=== PATIENT | female | born 1955 | race Caucasian/White ===

== ENCOUNTER 2023-05-18 23:19 | Inpatient (IN) | payer MEDICARE, OTHER ==
[~2023-05-18] VITALS: Ht 160 cm; Wt 117.9 kg
[~2023-05-18 23:19] MED LIST: ACET325T53 PO; ASPI81TA31 PO; ATOR40TA PO; CYCL-289 PO; GABA-534 PO; IPRA0.2S6 NEB; LEVE1000 PO; LEVO150T8 PO; METF-440 PO; OXYC-133 PO; PANT40TA2 PO; POLY17PO4 PO; POTA10TA15 PO; TOPI100T PO; TOPI200T PO
[2023-05-18 23:58] LABS: ETHANOL < 3 MG/DL (0-10)
[2023-05-19] MEDS ORDERED: DOCU-141 PO
[2023-05-19] MEDS ORDERED: LEVE500T20 PO
[2023-05-19] MEDS ORDERED: PANT40TA2 PO
[2023-05-19] MEDS ORDERED: POLY17PO4 PO
[2023-05-19] MEDS ORDERED: DULO60CA45 PO
[2023-05-19] MEDS ORDERED: NA P133E RC
[2023-05-19] MEDS ORDERED: ATOR10TA PO
[2023-05-19] MEDS ORDERED: TEMA15CA5 PO
[2023-05-19] MEDS ORDERED: CLON0.1T PO
[2023-05-19] MEDS ORDERED: CRAN450T9 PO
[2023-05-19] MEDS ORDERED: BISA10SU61 RC
[2023-05-19] MEDS ORDERED: MAG30ORA PO
[2023-05-19] MEDS ORDERED: LORA0.5T48 PO
[2023-05-19] MEDS ORDERED: QUET200T PO
[2023-05-19] MEDS ORDERED: DIVA125C2 PO
[2023-05-19] MEDS ORDERED: HYDR-3980 PO
[2023-05-19] MEDS ORDERED: GABA-532 PO
[2023-05-19] MEDS ORDERED: MULT-1119 PO
[2023-05-19] MEDS ORDERED: CYCL5TAB PO
[2023-05-19] MEDS ORDERED: MAGN400O6 PO
[2023-05-19 00:01] LABS: BASOPHILS # (AUTO) 0.1 K/UL (0.0-0.2); BASOPHILS % (AUTO) 1.2 % (0.0-2.0); EOSINOPHILS # (AUTO) 0.1 K/uL (0.0-0.7); EOSINOPHILS % (AUTO) 2.8 % (0.0-7.0); HEMATOCRIT 41.3 % (31.2-41.9); HEMOGLOBIN 13.8 g/dL (10.9-14.3); LYMPHOCYTES # (AUTO) 1.7 K/uL (0.8-4.8); LYMPHOCYTES % (AUTO) 34.9 % (20.5-51.5); MEAN CORPUSCULAR HEMOGLOBIN 29.8 uug (24.7-32.8); MEAN CORPUSCULAR HGB CONC 33 g/dL (32.3-35.6); MEAN CORPUSCULAR VOLUME 89.3 fL (75.5-95.3); MONOCYTES # (AUTO) 0.4 K/uL (0.1-1.30); MONOCYTES % (AUTO) 7.4 % (0.0-11.0); NEUTROPHILS # (AUTO) 2.7 K/uL (1.8-8.9); NEUTROPHILS % (AUTO) 53.7 % (38.5-71.5); PLATELET COUNT (AUTO) 117 K/uL (179-408); RED BLOOD CELL COUNT(AUTO) 4.63 MIL/uL (3.63-4.92); RED CELL DISTRIBUTION WIDTH 14.1 % (12.3-17.7)
[2023-05-19 00:08] LABS: THYROID STIMULATING HORMONE 0.319 mIU/mL (0.358-3.740)
[2023-05-19 00:10] LABS: ALANINE AMINOTRANSFERASE 16 U/L (14-59); ALBUMIN 3.4 g/dL (3.4-5.0); ALKALINE PHOSPHATASE 103 U/L (50-136); ASPARTATE AMINOTRANSFERASE 23 U/L (15-37); BILIRUBIN,DIRECT 0.2 mg/dL (0.0-0.2); BILIRUBIN,TOTAL 0.6 mg/dL (0.2-1.0); CALCIUM 9.5 mg/dL (8.5-10.1); CARBON DIOXIDE 27 mmol/L (21-32); CHLORIDE 106 mmol/L (98-107); CREATININE 0.9 mg/dL (0.6-1.3); POTASSIUM 3.4 mmol/L (3.5-5.1); SODIUM SERUM 143 mmol/L (136-145); TOTAL PROTEIN, SERUM 6.7 g/dL (6.4-8.2); UREA NITROGEN, BLOOD 17 mg/dL (7-18)
[2023-05-19 00:14] LABS: ACETAMINOPHEN < 2.0 ug/mL (10-30)
[2023-05-19 00:19] LABS: GLUCOSE 131 mg/dL (74-106)
[2023-05-19] MEDS ORDERED: IV D5W-0.45% NS +20 KCL 1,000 ML IV ONE (00:30)
[2023-05-19] MEDS ORDERED: PANTOPRAZOLE SODIUM 40 MG TABLET.DR PO ONE ×2 (01:29→01:30)
[2023-05-19] MEDS ORDERED: ONDANSETRON ODT 4 MG TAB.RAPDIS ONE (01:29)
[2023-05-19] MEDS ORDERED: levETIRAcetam 250 MG TABLET ONE (01:29)
[2023-05-19] MEDS ORDERED: ONDANSETRON ODT 4 MG TAB.RAPDIS SL ONE (01:30)
[2023-05-19] MEDS ORDERED: LORAZEPAM 0.5 MG TABLET PO ONE (01:30)
[2023-05-19] MEDS ORDERED: LORAZEPAM 1 MG TABLET ONE (01:30)
[2023-05-19] MEDS ORDERED: OXYCODONE/APAP 5-325 MG TABLET ONE (01:30)
[2023-05-19] MEDS ORDERED: OXYCODONE/APAP 5-325 MG TABLET PO ONE (01:30)
[2023-05-19] MEDS ORDERED: levETIRAcetam 250 MG TABLET PO ONE (01:30)
[2023-05-19 02:23] LABS: *AMPHETAMINE, URINE NEGATIVE (NEGATIVE); *BARBITURATE, URINE NEGATIVE (NEGATIVE); *BENZODIAZEPINE, URINE NEGATIVE (NEGATIVE); *CANNABINOID, URINE NEGATIVE (NEGATIVE); *COCCAINE, URINE NEGATIVE (NEGATIVE); *OPIATE, URINE POSITIVE (NEGATIVE); *PHENCYCLIDINE SCREEN,URINE NEGATIVE (NEGATIVE); FENTANYL, URINE NEGATIVE (NEGATIVE)
[2023-05-19 02:55] LABS: *CLARITY,URINE CLEAR (CLEAR); *COLOR,URINE YELLOW (YELLOW)
[2023-05-19 02:56] LABS: *BILIRUBIN,URIN NEGATIVE (NEGATIVE); *BLOOD, URINE NEGATIVE (NEGATIVE); *KETONES,URINE NEGATIVE (NEGATIVE); *PROTEIN,URINE NEGATIVE (NEGATIVE); *UROBILINOGEN,URINE 0.2 E.U./dl (NORMAL); LEUKOCYTE ESTERASE ,URINE NEGATIVE (NEGATIVE); NITRITE, URINE NEGATIVE (NEGATIVE); PH,URINE 6.5 (5.0-8.0); UGLUCOSE NEGATIVE (NEGATIVE)
[2023-05-19] MEDS ORDERED: BLOOD SUGAR DIAGNOSTIC 1 EACH STRIP VI ONE (07:45)
[2023-05-19] MEDS ORDERED: ZOLPIDEM 5 MG TABLET PO PRN (07:45)
[2023-05-19] MEDS ORDERED: MAGNESIUM HYDROXIDE 30 ML LIQUID UDC PO PRN (07:45)
[2023-05-19] MEDS ORDERED: LORAZEPAM 0.5 MG TABLET PO PRN (07:45)
[2023-05-19] MEDS ORDERED: MAG HYDROX/AL HYDROX/SIMETH 30 ML LIQUID UDC PO PRN (07:45)
[2023-05-19 08:15] VITALS: BP 144/82; TEMP 98; O2SAT 98
[2023-05-19] MEDS: DOCUSATE SODIUM 100 MG CAPSULE PO SCH (10:23)
[2023-05-19] MEDS: levETIRAcetam 500 MG TABLET PO SCH ×2 (10:24→17:30)
[2023-05-19] MEDS: MULTIVITAMINS,THERAPEUTIC TABLET PO SCH (10:24)
[2023-05-19 15:18] VITALS: BP 136/49; TEMP 98; O2SAT 98
[2023-05-19] MEDS: DIVALPROEX SPRINKLE 125 MG CAP.SPRINK PO SCH (17:30)
[2023-05-19] MEDS: risperiDONE 1 MG TABLET PO SCH (17:30)
[2023-05-19 20:00] VITALS: BP 126/56; TEMP 98.4; O2SAT 96
[2023-05-19] MEDS: ATORVASTATIN 10 MG TABLET PO SCH (20:48)
[2023-05-20] MEDS: LEVOTHYROXINE SODIUM 125 MCG TABLET PO SCH (06:54)
[2023-05-20 07:30] VITALS: BP 141/72; TEMP 98; O2SAT 96
[2023-05-20 08:24] LABS: ALBUMIN 3.3 g/dL (3.4-5.0); BILIRUBIN,TOTAL 0.5 mg/dL (0.2-1.0); CALCIUM 8.9 mg/dL (8.5-10.1); CREATININE 0.8 mg/dL (0.6-1.3); POTASSIUM 3.6 mmol/L (3.5-5.1); TOTAL PROTEIN, SERUM 6.4 g/dL (6.4-8.2)
[2023-05-20] MEDS: levETIRAcetam 500 MG TABLET PO SCH ×2 (08:36→16:13)
[2023-05-20] MEDS: risperiDONE 1 MG TABLET PO SCH ×4 (08:36→17:00)
[2023-05-20] MEDS: DULOXETINE 60 MG CAPSULE.DR PO SCH (08:36)
[2023-05-20] MEDS: DIVALPROEX SPRINKLE 125 MG CAP.SPRINK PO SCH ×2 (08:36→16:13)
[2023-05-20] MEDS: MULTIVITAMINS,THERAPEUTIC TABLET PO SCH (08:36)
[2023-05-20] MEDS: DOCUSATE SODIUM 100 MG CAPSULE PO SCH (08:36)
[2023-05-20 15:41] VITALS: BP 142/70; TEMP 98; O2SAT 99
[2023-05-20 20:00] VITALS: BP 116/57; TEMP 97.7; O2SAT 97
[2023-05-20] MEDS: ATORVASTATIN 10 MG TABLET PO SCH (20:55)
[2023-05-21] MEDS: LEVOTHYROXINE SODIUM 125 MCG TABLET PO SCH (06:34)
[2023-05-21 08:04] VITALS: BP 155/97; TEMP 98.4; O2SAT 99
[2023-05-21] MEDS: DULOXETINE 60 MG CAPSULE.DR PO SCH (08:36)
[2023-05-21] MEDS: DIVALPROEX SPRINKLE 125 MG CAP.SPRINK PO SCH ×2 (08:37→16:37)
[2023-05-21] MEDS: DOCUSATE SODIUM 100 MG CAPSULE PO SCH (08:37)
[2023-05-21] MEDS: levETIRAcetam 500 MG TABLET PO SCH ×2 (08:37→16:36)
[2023-05-21] MEDS: MULTIVITAMINS,THERAPEUTIC TABLET PO SCH (08:37)
[2023-05-21] MEDS: risperiDONE 1 MG TABLET PO SCH ×3 (08:45→16:37)
[2023-05-21 16:21] VITALS: BP 146/75; TEMP 98.4; O2SAT 99
[2023-05-21 20:00] VITALS: BP 146/72; TEMP 97.8; O2SAT 99
[2023-05-21] MEDS: ATORVASTATIN 10 MG TABLET PO SCH (20:45)
[2023-05-22] MEDS: LEVOTHYROXINE SODIUM 125 MCG TABLET PO SCH (05:52)
[2023-05-22] MEDS: ACETAMINOPHEN 325 MG TABLET PO PRN (05:53)
[2023-05-22 08:06] VITALS: BP 149/84; TEMP 98.2; O2SAT 96
[2023-05-22] MEDS: risperiDONE 1 MG TABLET PO SCH ×3 (09:00→16:50)
[2023-05-22] MEDS: DULOXETINE 60 MG CAPSULE.DR PO SCH (09:26)
[2023-05-22] MEDS: DIVALPROEX SPRINKLE 125 MG CAP.SPRINK PO SCH ×2 (09:26→16:49)
[2023-05-22] MEDS: levETIRAcetam 500 MG TABLET PO SCH ×2 (09:26→16:50)
[2023-05-22] MEDS: DOCUSATE SODIUM 100 MG CAPSULE PO SCH (09:27)
[2023-05-22] MEDS: MULTIVITAMINS,THERAPEUTIC TABLET PO SCH (09:27)
[2023-05-22] MEDS: GLUCERNA SHAKE 237 ML CAN PO SCH (09:34)
[2023-05-22 15:53] VITALS: BP 131/82; TEMP 98.2; O2SAT 96
[2023-05-22 20:02] VITALS: BP 134/70; TEMP 98.3; O2SAT 100
[2023-05-22] MEDS: ATORVASTATIN 10 MG TABLET PO SCH (21:39)
[2023-05-23] MEDS: LEVOTHYROXINE SODIUM 125 MCG TABLET PO SCH (06:05)
[2023-05-23 07:30] VITALS: BP 123/69; TEMP 98; O2SAT 96
[2023-05-23] MEDS: GLUCERNA SHAKE 237 ML CAN PO SCH (09:00)
[2023-05-23] MEDS: MULTIVITAMINS,THERAPEUTIC TABLET PO SCH (09:23)
[2023-05-23] MEDS: DULOXETINE 60 MG CAPSULE.DR PO SCH (09:23)
[2023-05-23] MEDS: risperiDONE 1 MG TABLET PO SCH ×2 (09:23→17:00)
[2023-05-23] MEDS: DIVALPROEX SPRINKLE 125 MG CAP.SPRINK PO SCH ×2 (09:23→17:03)
[2023-05-23] MEDS: DOCUSATE SODIUM 100 MG CAPSULE PO SCH (09:23)
[2023-05-23] MEDS: levETIRAcetam 500 MG TABLET PO SCH ×2 (09:24→17:04)
[2023-05-23 15:47] VITALS: BP 127/72; TEMP 98; O2SAT 99
[2023-05-23 20:15] VITALS: BP 130/70; TEMP 98.1; O2SAT 98
[2023-05-23] MEDS: ATORVASTATIN 10 MG TABLET PO SCH (21:00)
[2023-05-24] MEDS: LEVOTHYROXINE SODIUM 125 MCG TABLET PO SCH (05:51)
[2023-05-24 07:48] VITALS: BP 165/80; TEMP 98.4; O2SAT 98
[2023-05-24] MEDS: risperiDONE 1 MG TABLET PO SCH ×2 (08:57→17:00)
[2023-05-24] MEDS: DOCUSATE SODIUM 100 MG CAPSULE PO SCH ×2 (08:57→09:00)
[2023-05-24] MEDS: levETIRAcetam 500 MG TABLET PO SCH ×4 (08:57→17:48)
[2023-05-24] MEDS: DIVALPROEX SPRINKLE 125 MG CAP.SPRINK PO SCH ×3 (08:57→10:30)
[2023-05-24] MEDS: MULTIVITAMINS,THERAPEUTIC TABLET PO SCH ×2 (08:57→10:32)
[2023-05-24] MEDS: DULOXETINE 60 MG CAPSULE.DR PO SCH ×2 (09:00→09:02)
[2023-05-24] MEDS: GLUCERNA SHAKE 237 ML CAN PO SCH (09:03)
[2023-05-24 16:15] VITALS: BP 143/70; TEMP 98.1; O2SAT 98
[2023-05-24 20:00] VITALS: BP 121/70; TEMP 98.5; O2SAT 98
[2023-05-24] MEDS: ATORVASTATIN 10 MG TABLET PO SCH ×2 (21:00→21:33)
[2023-05-25] MEDS: LEVOTHYROXINE SODIUM 125 MCG TABLET PO SCH (06:54)
[2023-05-25 08:20] VITALS: BP 145/79; TEMP 98; O2SAT 97
[2023-05-25] MEDS: GLUCERNA SHAKE 237 ML CAN PO SCH (09:00)
[2023-05-25] MEDS: MULTIVITAMINS,THERAPEUTIC TABLET PO SCH (09:05)
[2023-05-25] MEDS: DOCUSATE SODIUM 100 MG CAPSULE PO SCH (09:05)
[2023-05-25] MEDS: levETIRAcetam 500 MG TABLET PO SCH ×2 (09:05→18:00)
[2023-05-25] MEDS: ACETAMINOPHEN 325 MG TABLET PO PRN (09:06)
[2023-05-25] MEDS: risperiDONE 1 MG TABLET PO SCH ×2 (09:06→17:00)
[2023-05-25] MEDS: DIVALPROEX SPRINKLE 125 MG CAP.SPRINK PO SCH ×2 (09:07→17:59)
[2023-05-25 16:29] VITALS: BP 131/71; TEMP 98; O2SAT 97
[2023-05-25 19:55] VITALS: BP 130/70; TEMP 98.1; O2SAT 96
[2023-05-25] MEDS: ATORVASTATIN 10 MG TABLET PO SCH (22:00)
[2023-05-26] MEDS: MULTIVITAMINS,THERAPEUTIC TABLET PO SCH (08:39)
[2023-05-26] MEDS: levETIRAcetam 500 MG TABLET PO SCH (08:39)
[2023-05-26] MEDS: DOCUSATE SODIUM 100 MG CAPSULE PO SCH (08:39)
[2023-05-26] MEDS: risperiDONE 1 MG TABLET PO SCH (08:39)
[2023-05-26] MEDS: DIVALPROEX SPRINKLE 125 MG CAP.SPRINK PO SCH (08:39)
[2023-05-26] MEDS: GLUCERNA SHAKE 237 ML CAN PO SCH (08:40)
[2023-05-26] MEDS: LEVOTHYROXINE SODIUM 125 MCG TABLET PO SCH (08:41)
[2023-05-26 11:29] VITALS: BP 124/75; TEMP 98.3; O2SAT 99
[2023-05-26] MEDS ORDERED: PROTEIN SUPPLEMENT (PROSTAT) 30 ML LIQUID PO SCH (17:00)
== END 2023-05-26 13:45 | DRG 885 ==
LOC: ER 23:31 → GPS 05-19 06:00
PROVIDERS: ADMIT Psychiatry & Neurology Psychosomatic Medicine; ATTEND Internal Medicine
DX: F31.9 Bipolar disorder, unspecified (principal); I69.351 Hemiplegia and hemiparesis following cerebral infarction affecting right dominant side; Z68.42 Body mass index [BMI] 45.0-49.9, adult; D68.59 Other primary thrombophilia; D80.3 Selective deficiency of immunoglobulin G [IgG] subclasses; Z20.822 Contact with and (suspected) exposure to COVID-19; E66.01 Morbid (severe) obesity due to excess calories; F60.9 Personality disorder, unspecified; Z74.09 Other reduced mobility; E78.5 Hyperlipidemia, unspecified; R45.1 Restlessness and agitation; E03.9 Hypothyroidism, unspecified; Z79.890 Hormone replacement therapy; Z79.899 Other long term (current) drug therapy; G40.909 Epilepsy, unspecified, not intractable, without status epilepticus; E11.42 Type 2 diabetes mellitus with diabetic polyneuropathy; M79.7 Fibromyalgia; E87.6 Hypokalemia; D69.6 Thrombocytopenia, unspecified; G47.30 Sleep apnea, unspecified; Z79.82 Long term (current) use of aspirin; Z79.84 Long term (current) use of oral hypoglycemic drugs; Z88.2 Allergy status to sulfonamides; Z88.0 Allergy status to penicillin; Z88.1 Allergy status to other antibiotic agents; Z91.414 Personal history of adult intimate partner abuse; Z91.51 Personal history of suicidal behavior; Z91.52 Personal history of nonsuicidal self-harm; Z91.199 Patient's noncompliance with other medical treatment and regimen due to unspecified reason; M18.11 Unilateral primary osteoarthritis of first carpometacarpal joint, right hand
CPT/HCPCS: 36415; 73130; 84443; 85025; 93005; A4606; A4663; G0480; Q0162